=== PATIENT | female | born 1940 | race African-American/Black ===

== ENCOUNTER 2023-12-02 14:05 | Emergency (ER) | payer BC, MEDICARE ==
[~2023-12-02] VITALS: Ht 165.1 cm; Wt 88.0 kg
[~2023-12-02 14:05] MED LIST: AMLO5TAB88 PO; TIMO1DRO2 OP; TIMO5DRO32 EACHEYE; TOLT4CAP27 PO; VALS160T28 PO
[2023-12-02 14:09] VITALS: O2SAT 98
[2023-12-02 14:44] LABS: BASOPHILS % 0.3 % (0.0-2.0); DIFFERENTIAL COMMENT 0; EOSINOPHILS % 0.8 % (0.0-5.0); HEMATOCRIT. 44.7 % (36.0-48.0); HEMOGLOBIN. 14.6 g/dL (12.0-16.0); LYMPHOCYTES % 27.6 % (20.0-50.0); MEAN CORPUSCULAR HGB CONC 32.5 g/dL (31.0-37.0); MEAN CORPUSCULAR VOLUME 79.8 fL (81.0-99.0); MEAN PLATELET VOLUME 7.2 fl (7.4-10.4); NEUTROPHILS % 63.3 % (40.0-76.0); PLATELET 191 x1000/uL (130-400); RED CELL DISTRIBUTION WIDTH 14.8 % (11.6-14.6); WHITE BLOOD COUNT 8.7 x1000/uL (4.5-11.0)
[2023-12-02 16:33] LABS: POTASSIUM 3.9 mEq/L (3.5-5.1)
[2023-12-02 16:35] LABS: CALCIUM 10.6 mg/dL (8.7-10.4)
[2023-12-02 16:39] LABS: CREATININE 1.2 mg/dL (0.6-1.0)
[2023-12-02] MEDS ORDERED: GABA-529 MT (17:02)
[2023-12-02 17:26] VITALS: BP 155/88; PULSE 60; RESP 14; TEMP 97.8
== END 2023-12-02 17:30 | disposition home or self-care (01) ==
LOC: ER 14:05
DX: G62.9 Polyneuropathy, unspecified (principal); I10 Essential (primary) hypertension; E11.9 Type 2 diabetes mellitus without complications; Z98.890 Other specified postprocedural states
CPT/HCPCS: 36415; 80048; 85025; 99283

== ENCOUNTER 2024-09-13 09:52 | Emergency (ER) | payer BC ==
[~2024-09-13] VITALS: Ht 167.6 cm; Wt 100.0 kg
[~2024-09-13 09:52] MED LIST changes: +GABA-529 MT
[2024-09-13 09:53] VITALS: O2SAT 98
[2024-09-13 10:10] VITALS: TEMP 36.6; O2SAT 97
[2024-09-13 11:41] LABS: CLARITY URINE CLOUDY (CLEAR); COLOR URINE DARK YELLOW (YELLOW); GLUCOSE URINE NEGATIVE (NEGATIVE); KETONES URINE NEGATIVE (NEGATIVE); LEUKOCYTE ESTERASE URINE 3+ (NEGATIVE); NITRITE URINE NEGATIVE (NEGATIVE); OCCULT BLOOD URINE NEGATIVE (NEGATIVE); PH URINE 7.5 (4.5-8.0); PROTEIN URINE TRACE (NEGATIVE); SPECIFIC GRAVITY URINE 1.019 (1.005-1.030); UROBILINOGEN URINE 0.2 E.U./dL (0.2-1.0)
[2024-09-13 12:41] LABS: SQUAMOUS EPITHELIAL CELL URINE 2+ /lpf (RARE/1+)
[2024-09-13 12:42] LABS: WBC URINE 50-100 /hpf (0-2)
[2024-09-13 12:44] LABS: BACTERIA URINE 3+
[2024-09-13] MEDS: METOCLOPRAMIDE HCL 10MG TABLET PO ONE (12:49)
[2024-09-13] MEDS: DIPHENHYDRAMINE 25MG CAPSULE PO ONE (12:49)
[2024-09-13 12:50] VITALS: BP 163/61; PULSE 68; RESP 16
[2024-09-13] MEDS: KETOROLAC 30MG/ML VIAL IM ONE (12:50)
[2024-09-13] MEDS ORDERED: CEFP200T14 MT (13:43)
== END 2024-09-13 14:15 | disposition home or self-care (01) ==
LOC: ER 09:52
DX: G44.209 Tension-type headache, unspecified, not intractable (principal); N39.0 Urinary tract infection, site not specified; E11.9 Type 2 diabetes mellitus without complications; M19.90 Unspecified osteoarthritis, unspecified site; I10 Essential (primary) hypertension; Z79.899 Other long term (current) drug therapy; Z98.890 Other specified postprocedural states
CPT/HCPCS: 99285; 70450; 81003; 96372; J1885; Q0163; J8597; 99284

== ENCOUNTER 2024-11-04 14:00 | Emergency (ER) | payer BC ==
[~2024-11-04] VITALS: Ht 163.8 cm; Wt 94.8 kg
[~2024-11-04 14:00] MED LIST changes: +CEFP200T14 MT
[2024-11-04 14:03] VITALS: O2SAT 100
[2024-11-04 15:11] LABS: BASOPHILS % 0.3 % (0.0-2.0); EOSINOPHILS % 1.1 % (0.0-5.0); HEMATOCRIT. 41.8 % (36.0-48.0); HEMOGLOBIN. 13.4 g/dL (12.0-16.0); LYMPHOCYTES % 26.8 % (20.0-50.0); MEAN CORPUSCULAR HEMOGLOBIN 25.7 pg (28.0-32.0); MEAN CORPUSCULAR HGB CONC 32.1 g/dL (31.0-37.0); MEAN CORPUSCULAR VOLUME 80.2 fL (81.0-99.0); MEAN PLATELET VOLUME 7.2 fl (7.4-10.4); MONOCYTES % 7.6 % (2.0-8.0); NEUTROPHILS % 64.2 % (40.0-76.0); PLATELET 191 x1000/uL (130-400); RED BLOOD CELL COUNT 5.21 mill/uL (4.2-5.4); RED CELL DISTRIBUTION WIDTH 15.2 % (11.6-14.6); WHITE BLOOD COUNT 7.9 x1000/uL (4.5-11.0)
[2024-11-04 15:17] LABS: CHLORIDE 107 mEq/L (98-107); POTASSIUM 4.2 mEq/L (3.5-5.1); SODIUM 142 mEq/L (136-145)
[2024-11-04 15:18] LABS: CARBON DIOXIDE 28 mEq/L (21-32)
[2024-11-04 15:19] LABS: CALCIUM 10.5 mg/dL (8.7-10.4)
[2024-11-04 15:23] LABS: CREATININE 1.2 mg/dL (0.6-1.0); GLUCOSE 80 mg/dL (70-105); UREA NITROGEN BLOOD 16 mg/dL (9-23)
[2024-11-04 15:24] LABS: TROPONIN I HIGH SENSITIVITY 5 ng/L (3.0-34)
[2024-11-04 15:25] LABS: ALANINE AMINOTRANSFERASE 12 IU/L (10-49); ALBUMIN 4.1 g/dL (3.2-4.8); ASPARTATE AMINOTRANSFERASE 18 IU/L (<34)
[2024-11-04 15:26] LABS: BILIRUBIN TOTAL 0.3 mg/dL (0.1-1.0); PROTEIN TOTAL 6.7 g/dL (6.0-8.3)
[2024-11-04 15:42] LABS: PROTHROMBIN TIME 10.6 sec (9.6-11.0)
[2024-11-04 15:57] LABS: CLARITY URINE CLEAR (CLEAR); COLOR URINE YELLOW (YELLOW); GLUCOSE URINE NEGATIVE (NEGATIVE); KETONES URINE NEGATIVE (NEGATIVE); LEUKOCYTE ESTERASE URINE 3+ (NEGATIVE); NITRITE URINE NEGATIVE (NEGATIVE); OCCULT BLOOD URINE NEGATIVE (NEGATIVE); PROTEIN URINE NEGATIVE (NEGATIVE); SPECIFIC GRAVITY URINE 1.013 (1.005-1.030); UROBILINOGEN URINE 0.2 E.U./dL (0.2-1.0)
[2024-11-04] MEDS: KETOROLAC 30MG/ML VIAL IV STA (16:00)
[2024-11-04] MEDS: KETOROLAC 15MG/ML VIAL IV ONE (16:00)
[2024-11-04] MEDS: SODIUM CHLORIDE 0.9% 1,000 ML IV ONE (16:01)
[2024-11-04 16:17] LABS: BACTERIA URINE 1+; RBC URINE 0-2 /hpf (0-2); SQUAMOUS EPITHELIAL CELL URINE FEW /lpf (RARE/1+)
[2024-11-04 16:48] LABS: TROPONIN I HIGH SENSITIVITY 5 ng/L (3.0-34)
[2024-11-04] MEDS ORDERED: CEFP200T13 MT (17:29)
[2024-11-04] MEDS: CEFTRIAXONE 1GM/50ML 50 ML IV ONE (18:17)
[2024-11-04 19:33] VITALS: BP 190/73; PULSE 73; RESP 12; TEMP 36.7; O2SAT 96
[2024-11-04] MEDS ORDERED: IOHEXOL-300 100 ML BOTTLE ONE (23:35)
== END 2024-11-04 19:35 | disposition home or self-care (01) ==
LOC: ER 14:00
DX: N39.0 Urinary tract infection, site not specified (principal); E11.9 Type 2 diabetes mellitus without complications; I10 Essential (primary) hypertension; Z98.890 Other specified postprocedural states; Z79.899 Other long term (current) drug therapy
CPT/HCPCS: 99285; 74177; 96365; 71045; 96361; 80053; 81003; 85025; 85610; 84484; 36415; 93005; J1885; Q9967; J0696; J7030